=== PATIENT | male | born 1950 | race Caucasian/White ===

== ENCOUNTER 2017-08-05 01:41 | Emergency (ER) | payer MEDICARE, OTHER ==
[~2017-08-05] VITALS: Ht 188 cm; Wt 96.8 kg
[2017-08-05] MEDS ORDERED: LORazepam 2 MG/ML, 1ML ONE (02:14)
[2017-08-05] MEDS ORDERED: LORazepam 2 MG/ML, 1ML IM ONE (02:30)
[2017-08-05 03:51] VITALS: BP 174/93
== END 2017-08-05 03:53 | disposition home or self-care (01) ==
LOC: ED 03:47
DX: F41.1 Generalized anxiety disorder (principal); I10 Essential (primary) hypertension; F31.9 Bipolar disorder, unspecified
CPT/HCPCS: 96372; 99284; J2060